=== PATIENT | male | born 2000 | race African-American/Black ===

== ENCOUNTER 2024-08-21 17:20 | Emergency (ER) | payer MEDICARE ==
[~2024-08-21] VITALS: Ht 182.9 cm; Wt 100.7 kg
[2024-08-21 17:25] VITALS: PULSE 75; RESP 20; TEMP 98.5; O2SAT 98
[2024-08-21] MEDS: DIPHTH,PERTUSS(ACELL),TET VAC 0.5 ML SYRINGE IM ONE (17:49)
[2024-08-21] MEDS: TETANUS/DIPHTHERIA TOX ADULT 0.5 ML SYR IM ONE (17:50)
[2024-08-21] MEDS ORDERED: IBUPROFEN 400 MG TAB ONE (18:17)
[2024-08-21] MEDS: IBUPROFEN 400 MG TAB PO ONE (18:24)
== END 2024-08-21 18:25 | disposition home or self-care (01) ==
LOC: FSED 17:25
DX: S50.311A Abrasion of right elbow, initial encounter (principal); S60.512A Abrasion of left hand, initial encounter; S63.592A Other specified sprain of left wrist, initial encounter; V19.88XA Pedal cyclist (driver) (passenger) injured in other specified transport accidents, initial encounter; Y93.55 Activity, bike riding; Y92.488 Other paved roadways as the place of occurrence of the external cause
CPT/HCPCS: 90471; 90714; 99284